=== PATIENT | female | born 1960 | race Caucasian/White ===

== ENCOUNTER 2016-11-30 16:30 | Emergency (ER) | payer SELFPAY ==
[2016-11-30 17:06] VITALS: BP 137/84; PULSE 97; TEMP 97.4; BMI 29.7
--- NOTE | 2016-11-30 17:14 | PDOC ---
History of Present Illness - History of Present Illness Initial Comments: 11/30/16 18:29 The patient is a 56 year old female, with a significant past medical history of hyperthyroidism (thyroidectomy x 1 year ago), who presents to the emergency department with palpitations and dizziness today. The patient states she feels her palpitations in her neck, and point to the right jugular region. She reports her palpitations are alleviated with sitting up and exacerbated with lying flat. She also reports drinking water and a beer which reduced her palpitations. She reports feeling dizzy like the room spinning, intermittently. She also reports indigestion. She denies shortness of breath and headache. She denies fever, chills, nausea, vomit, diarrhea and constipation. She denies dysuria, frequency, urgency and hematuria. Allergies: NKDA Social history: Pt admits to drinking about 30 alcoholic beverages weekly. <Shell Lozano - Last Filed: 11/30/16 18:29> <Brandy Yeung - Last Filed: 12/02/16 08:43> - General Chief Complaint: Chest Pain Stated Complaint: CHEST PAIN Time Seen by Provider: 11/30/16 17:13 Past History <Shell Lozano - Last Filed: 11/30/16 18:29> - Past Medical History Diabetes: Yes - Immunization History Immunization Up to Date: Yes - Psycho/Social/Smoking Cessation Hx Suicidal Ideation: No Smoking History: Current every day smoker Have you smoked in the past 12 months: No Number of Cigarettes Smoked Daily: 2 Information on smoking cessation initiated: No Hx Alcohol Use: No Drug/Substance Use Hx: No Substance Use Type: None <Brandy Yeung - Last Filed: 12/02/16 08:43> - Past Medical History Allergies/Adverse Reactions: Allergies Allergy/AdvReac Type Severity Reaction Status Date / Time No Known Allergies Allergy Verified 11/30/16 17:00 Home Medications: Ambulatory Orders Levothyroxine [Synthroid -] 150 mcg PO DAILY 11/30/16 Metformin HCl 500 mg PO BID 11/30/16 Review of Systems - Review of Systems Able to Perform ROS?: Yes Comments:: 11/30/16 18:30 GENERAL/CONSTITUTIONAL: No fever or chills. No weakness. HEAD, EYES, EARS, NOSE AND THROAT: No change in vision. No ear pain or discharge. No sore throat. CARDIOVASCULAR: (+) palpitations. No chest pain or shortness of breath. RESPIRATORY: No cough, wheezing, or hemoptysis. GASTROINTESTINAL: No nausea, vomiting, diarrhea or constipation. GENITOURINARY: No dysuria, frequency, or change in urination. MUSCULOSKELETAL: No joint or muscle swelling or pain. No neck or back pain. SKIN: No rash NEUROLOGIC:(+) dizziness. No headache, loss of consciousness, or change in strength/sensation. ENDOCRINE: No increased thirst. No abnormal weight change. HEMATOLOGIC/LYMPHATIC: No anemia, easy bleeding, or history of blood clots. ALLERGIC/IMMUNOLOGIC: No hives or skin allergy. <Shell Lozano - Last Filed: 11/30/16 18:29> *Physical Exam - Vital Signs Last Vital Signs Temp Pulse Resp BP Pulse Ox 97.4 F L 97 H 15 137/84 99 11/30/16 17:01 11/30/16 17:01 11/30/16 17:01 11/30/16 17:01 11/30/16 17:01 - Physical Exam Comments: 11/30/16 18:30 GENERAL: Awake, alert, and fully oriented, in no acute distress HEAD: No signs of trauma EYES: PERRLA, EOMI, sclera anicteric, conjunctiva clear ENT: Auricles normal inspection, hearing grossly normal, nares patent, oropharynx clear without exudates. Moist mucosa NECK: Normal ROM, supple, no lymphadenopathy, JVD, or masses LUNGS: Breath sounds equal, clear to auscultation bilaterally. No wheezes, and no crackles HEART: (+) tachycardic with normal rhythm, normal S1 and S2, no murmurs, rubs or gallops ABDOMEN: Soft, nontender, normoactive bowel sounds. No guarding, no rebound. No masses EXTREMITIES: Normal range of motion, no edema. No clubbing or cyanosis. No cords, erythema, or tenderness NEUROLOGICAL: Cranial nerves II through XII grossly intact. Normal speech, normal gait SKIN: Warm, Dry, normal turgor, no rashes or lesions noted. <Shell Lozano - Last Filed: 11/30/16 18:29> - Vital Signs Last Vital Signs Temp Pulse Resp BP Pulse Ox 97.4 F L 97 H 15 137/84 99 11/30/16 17:01 11/30/16 17:01 11/30/16 17:01 11/30/16 17:01 11/30/16 17:01 <Brandy Yeung - Last Filed: 12/02/16 08:43> ED Treatment Course - LABORATORY CBC & Chemistry Diagram: 11/30/16 18:32 11/30/16 18:32 <Brandy Yeung - Last Filed: 12/02/16 08:43> Medical Decision Making - Medical Decision Making 12/02/16 08:40 Pt presents to the ED complaining of palpitations after abruptly discontinuing alcohol two days ago. Denies anxiety, nausea or vomiting or tremors. Exam is unremarkable except for slight tongue fasiculations. Will check labs to rule out hyperthyroidism or anemia. No signs of severe withdrawal. Will discharge home if labs are normal. <Brandy Yeung - Last Filed: 12/02/16 08:43> *DC/Admit/Observation/Transfer - Attestations Scribe Attestion: 11/30/16 18:31 Documentation prepared by Shell Lozano, acting as medical customer service representative for Brandy Yeung MD <Shell Lozano - Last Filed: 11/30/16 18:29> <Brandy Yeung - Last Filed: 12/02/16 08:43> Diagnosis at time of Disposition: Alcohol withdrawal, Palpitations - Discharge Dispostion Disposition: HOME Condition at time of disposition: Good - Patient Instructions Printed Discharge Instructions: Alcohol Use Disorder, DI for Palpitations Additional Instructions: Mrs Lackey - Sorry that this happened to you. Take good care of yourself. Return to us if any problems and follow up with your regular doctor next week- Best- Dr.Frank Ruiz
[2016-11-30] MEDS ORDERED: chlordiazePOXIDE HCL 25 MG CAPSULE PO ONE (18:32)
[2016-11-30 18:55] LABS: EOSINOPHIL 3.7 % (0-4.5); MCH 28.5 pg (25.7-33.7); MCHC 33.1 g/dl (32.0-36.0); MEAN CELL VOLUME 86.2 fl (80-96); MEAN PLT VOLUME 9.6 fl (7.5-11.1); NEUTROPHILS 54.7 % (42.8-82.8); PLATELET COUNT 236 K/MM3 (134-434); RDW 14.8 % (11.6-15.6); WHITE BLOOD COUNT 7.3 K/mm3 (4.0-10.0)
[2016-11-30] MEDS ORDERED: chlordiazePOXIDE HCL 25 MG CAPSULE ONE (18:59)
[2016-11-30 19:20] LABS: URINE APPEARANCE SLCLOUDY; URINE BILIRUBIN NEGATIVE (NEGATIVE); URINE BLOOD NEGATIVE (NEGATIVE); URINE COLOR YELLOW; URINE GLUCOSE (UA) NEGATIVE (NEGATIVE); URINE KETONE NEGATIVE (NEGATIVE); URINE LEUK ESTERASE NEGATIVE (NEGATIVE); URINE NITRITE NEGATIVE (NEGATIVE); URINE PROTEIN NEGATIVE (NEGATIVE)
--- NOTE | 2016-11-30 19:43 | PDOC ---
*Physical Exam - Vital Signs Last Vital Signs Temp Pulse Resp BP Pulse Ox 97.4 F L 97 H 15 137/84 99 11/30/16 17:01 11/30/16 17:01 11/30/16 17:01 11/30/16 17:01 11/30/16 17:01 ED Treatment Course - LABORATORY CBC & Chemistry Diagram: 11/30/16 18:32 11/30/16 18:32 - ADDITIONAL ORDERS Additional order review: Laboratory Results 11/30/16 18:32 Urine Color Yellow Urine Appearance Slcloudy Urine pH 5.0 Urine Protein Negative Urine Glucose (UA) Negative Urine Ketones Negative Urine Blood Negative Urine Nitrite Negative Urine Bilirubin Negative Urine Urobilinogen 2.0 H 11/30/16 18:32 RBC 4.79 MCV 86.2 MCHC 33.1 RDW 14.8 MPV 9.6 Neutrophils % 54.7 Lymphocytes % 29.2 Monocytes % 11.4 H Eosinophils % 3.7 Basophils % 1.0 - Medications Given in the ED: ED Medications Discontinued Medications Generic Name Dose Route Start Last Admin Trade Name Tamara PRN Reason Stop Dose Admin Chlordiazepoxide HCl 25 mg 11/30/16 18:32 11/30/16 19:03 Librium - PO 11/30/16 18:33 25 mg ONCE ONE Administration Medical Decision Making - Medical Decision Making 11/30/16 20:25p Patient feels much better, no palpitations, no anxiety, labs reviewed. Will DC home. *DC/Admit/Observation/Transfer Diagnosis at time of Disposition: Palpitations Alcohol withdrawal Qualifiers: Complication of substance-induced condition: uncomplicated Qualified Code(s): F10.230 - Alcohol dependence with withdrawal, uncomplicated - Discharge Dispostion Disposition: HOME Condition at time of disposition: Good Admit: No - Patient Instructions Printed Discharge Instructions: DI for Palpitations, Alcohol Use Disorder Additional Instructions: Mrs Lackey - Sorry that this happened to you. Take good care of yourself. Return to us if any problems and follow up with your regular doctor next week- Best- Dr.Frank Ruiz - Attestations Physician Attestion: 11/30/16 19:43 I, Dr. Anatoly Ruiz, attest that this document has been prepared under my direction and personally reviewed by me in its entirety. I further attest, that it accurately reflects all work, treatment, procedures and medical decision -making performed by me.
[2016-11-30 19:47] LABS: ALBUMIN 3.3 g/dl (3.4-5.0); ANION GAP 7 (8-16); BILIRUBIN,TOTAL 0.2 mg/dL (0.2-1.0); CALCIUM 8.6 mg/dL (8.5-10.1); CO2 27 mmol/L (21-32); CREATININE 0.7 mg/dL (0.55-1.02); GLUCOSE,RANDOM 150 mg/dL (74-106); SGOT/AST 13 U/L (15-37); SGPT/ALT 24 U/L (12-78); TOT PROT 6.9 g/dl (6.4-8.2)
[2016-11-30 19:48] LABS: ALK PHOS 128 U/L (45-117)
--- NOTE | 2016-12-01 09:45 | EKG ---
Test Reason : Blood Pressure : / mmHG Vent. Rate : 084 BPM Atrial Rate : 084 BPM P-R Int : 146 ms QRS Dur : 090 ms QT Int : 378 ms P-R-T Axes : 043 -21 027 degrees QTc Int : 446 ms SINUS RHYTHM WITH FREQUENT and consecutive PREMATURE VENTRICULAR COMPLEXES ABNORMAL ECG NO PREVIOUS ECGS AVAILABLE Confirmed by PABLO FISHER MD ([id number]) on 12/01/2016 9:44:44 AM Referred By: Confirmed By:PABLO FISHER MD
== END 2016-11-30 20:31 | disposition home or self-care (01) ==
LOC: JER 16:30
DX: F10.230 Alcohol dependence with withdrawal, uncomplicated (principal); R00.2 Palpitations
CPT/HCPCS: 36415; 80053; 81003; 84443; 85025; 93005; 93010; 99283-25

== ENCOUNTER 2018-08-15 16:59 | Emergency (ER) | payer OTHER | END 2018-08-15 21:07 | disposition home or self-care (01) | LOC: JER 16:59 ==

== ENCOUNTER 2020-11-23 04:41 | Emergency (ER) | payer OTHER ==
[2020-11-23 05:03] VITALS: BP 150/89; PULSE 101; TEMP 97.7; BMI 30.3
== END 2020-11-23 05:30 ==
LOC: JER 04:41
DX: R51.9 Headache, unspecified (principal); Z01.30 Encounter for examination of blood pressure without abnormal findings
CPT/HCPCS: 99281-25